=== PATIENT | male | born 1945 | race Caucasian/White ===

== ENCOUNTER 2019-03-14 15:13 | Emergency (ER) | payer MEDICARE ==
[2019-03-14 15:49] LABS: #Basophils 0.1 thou/uL (0.0-0.2); #Eosinphils 0.5 thou/uL (0.0-0.7); #Lymphocytes 2.4 thou/uL (1.20-3.40); #Neutrophils 6.9 thou/uL (1.40-6.50); %Basophils 1.1 % (0.0-1.0); %Eosinophils 4.5 % (0.0-10.0); %Lymphocytes 21.8 % (21.0-51.0); %Neutrophils 63.6 % (42.0-75.0); Anisocytosis SLIGHT = 6-15 cells (100X) (0-5/hpf); Elliptocytes SLIGHT = 2-5 cells (100X) (0-1/hpf); Hemoglobin 10.3 g/dL (14.0-18.0); Hypochromia SLIGHT = 6-15 cells (100X) (0-5/hpf); MDiff Complete? YES; Mean Corpuscular HGB CONC 30.3 g/dL (32.0-36.0); Mean Corpuscular Volume 76.1 fL (78.0-98.0); Mean Platelet Volume 8.4 fL (7.4-10.4); Microcytosis SLIGHT = 6-15 cells (100X) (0-5/hpf); Platelet Count 350 thou/uL (130-400); Poikilocytosis SLIGHT = 6-15 cells (100X) (0-5/hpf); RBC Distribution Width 18.9 % (11.5-14.5); Red Blood Cell (RBC) Count 4.48 mill/uL (4.70-6.10); Rouleaux Formation SLIGHT = 1-5 cells (100X) (None Seen); Schistocytes SLIGHT = 2-5 cells (100X) (0-1/hpf); Tear Drops SLIGHT = 2-5 cells (100X) (0-1/hpf); White Blood Cell (WBC) Count 10.8 thou/uL (4.8-10.8)
[2019-03-14 15:50] LABS: ALT (SGPT) 12 U/L (8-55); AST (SGOT) 13 U/L (5-34); Alkaline Phosphatase 111 U/L (40-150); Anion Gap 16 mmol/L (10-20); BUN (Urea Nitrogen) 19 mg/dL (8.4-25.7); Bilirubin, Total 0.2 mg/dL (0.2-1.2); CK (CPK) 48 U/L (30-200); Calc. Creatinine Clearance 0 mL/min (70-130); Calcium 9.5 mg/dL (7.8-10.44); Carbon Dioxide 21 mmol/L (23-31); Chloride 106 mmol/L (98-107); Estimated GFR-MDRD Greater than 90; Globulin 2.9 g/dL (2.4-3.5); Glucose 184 mg/dL (83-110); INR-International Normal Ratio 1.1; PTT 30.4 SEC (22.9-36.1); Potassium 4.4 mmol/L (3.5-5.1); Protein, Total 6.9 g/dL (5.8-8.1); Prothrombin Time 14.3 SEC (12.0-14.7); Sodium 139 mmol/L (136-145)
--- NOTE | 2019-03-14 15:54 | CT ---
CT head without contrast: Multiple axial tomograms obtained through the head without IV enhancement. INDICATIONS: Mental status change. Stroke alert. COMPARISON: None FINDINGS: Mild cortical volume loss. Ventricles have normal size and position. No evidence of intracranial mass, hemorrhage, edema, or infarct. Visualized sinuses and mastoids appear clear. Bony calvarium appears unremarkable. IMPRESSION: No acute finding Findings relayed to emergency room physician at 3:45 PM
[2019-03-14] MEDS ORDERED: Aspirin Chewable 81 MG TAB ONE (16:34)
[2019-03-14 16:46] LABS: Clarity Clear (Clear); Leukocyte Negative (Negative); Nitrite Negative (Negative); Protein, Urine (Dipstick) 100 mg/dL (Neg-Trace); Specific Gravity, Urine 1.015 (1.005-1.030); pH, Urine 5.5 (5.0-9.0)
[2019-03-14 16:47] LABS: Bacteria/HPF None Seen HPF (None Seen); Bilirubin Negative (Negative); Blood, Urine Negative (Negative); Glucose, Urine (Dipstick) Negative (Negative); RBC/HPF 0-3 HPF (0-3); Squamous Epithelial 0-3 HPF (0-3); Urobilinogen 0.2 mg/dL (0.2-1.0); WBC/HPF 0-3 HPF (0-3)
--- NOTE | 2019-03-14 23:09 | RAD ---
PORTABLE CHEST: 03/14/19 An AP portable film at 1556 is compared with a 12/17/17 study. The heart is normal in size for an AP projection. There is no vascular congestion, edema, or pleural effusion. The lungs are clear. Calcific changes are seen in the aortic arch. IMPRESSION: No acute thoracic finding. POS: HOME
== END 2019-03-14 16:58 | disposition short-term general hospital (02) ==
LOC: BURERS 15:13
DX: I67.82 Cerebral ischemia (principal); F17.210 Nicotine dependence, cigarettes, uncomplicated; E11.9 Type 2 diabetes mellitus without complications
CPT/HCPCS: 36416; 70450; 71045; 80053; 81003; 81015; 82550; 84484; 85025; 85610; 85730; 93005; 94760; 36415-59

== ENCOUNTER 2022-08-03 15:15 | Inpatient (IN) | payer MEDICARE ==
[2022-08-03 16:54] VITALS: BMI 11.0
[2022-08-03] MEDS ORDERED: FLU VACC QS2022-23(65YR UP)/PF 240 MCG/0.7 ML SYRINGE IM ONE (18:00)
[2022-08-03] MEDS: metFORMIN 500 MG TAB PO SCH (18:37)
[2022-08-03 18:43] LABS: SARS-CoV-2 NAA Rapid Test Not Detected (NotDetected)
[2022-08-03] MEDS: Amoxicillin/Potassium Clav 500 MG TAB PO SCH (21:22)
[2022-08-03] MEDS: Senokot S 8.6-50 MG TAB PO SCH (21:22)
[2022-08-03] MEDS: Apixaban 5 MG TAB PO SCH (21:22)
[2022-08-03] MEDS: Atorvastatin Calcium 40 MG TAB PO SCH (21:22)
[2022-08-04] MEDS ORDERED: Ondansetron ODT 4 MG TAB PO PRN (08:00)
[2022-08-04] MEDS: metFORMIN 500 MG TAB PO SCH ×2 (09:54→17:30)
[2022-08-04] MEDS: Senokot S 8.6-50 MG TAB PO SCH ×2 (09:54→20:20)
[2022-08-04] MEDS: Ezetimibe 10 MG TAB PO SCH (09:54)
[2022-08-04] MEDS: Amoxicillin/Potassium Clav 500 MG TAB PO SCH ×2 (09:55→20:20)
[2022-08-04] MEDS: Empagliflozin 10 MG TAB PO SCH (09:55)
[2022-08-04] MEDS: Apixaban 5 MG TAB PO SCH ×2 (09:55→20:21)
[2022-08-04] MEDS: NIFEdipine XL 30 MG TAB PO SCH (09:55)
[2022-08-04] MEDS: Aspirin 81 mg Enteric Coated Tablet PO SCH (09:55)
[2022-08-04] MEDS: Saccharomyces boulardii 250 MG CAP PO SCH (09:55)
[2022-08-04] MEDS: traMADol HCl 50 MG TAB PO PRN (16:00)
[2022-08-04] MEDS: Atorvastatin Calcium 40 MG TAB PO SCH (20:21)
[2022-08-05] MEDS: Bisacodyl 5 MG TAB PO PRN (09:21)
[2022-08-05] MEDS: metFORMIN 500 MG TAB PO SCH ×2 (09:21→17:32)
[2022-08-05] MEDS: Saccharomyces boulardii 250 MG CAP PO SCH (09:22)
[2022-08-05] MEDS: Apixaban 5 MG TAB PO SCH ×2 (09:22→20:07)
[2022-08-05] MEDS: NIFEdipine XL 30 MG TAB PO SCH (09:22)
[2022-08-05] MEDS: Amoxicillin/Potassium Clav 500 MG TAB PO SCH ×2 (09:22→20:07)
[2022-08-05] MEDS: Ezetimibe 10 MG TAB PO SCH (09:22)
[2022-08-05] MEDS: Empagliflozin 10 MG TAB PO SCH (09:23)
[2022-08-05] MEDS: Aspirin 81 mg Enteric Coated Tablet PO SCH (09:23)
[2022-08-05] MEDS: Senokot S 8.6-50 MG TAB PO SCH ×2 (09:23→20:07)
[2022-08-05] MEDS: traMADol HCl 50 MG TAB PO PRN (19:18)
[2022-08-05] MEDS: Atorvastatin Calcium 40 MG TAB PO SCH (20:07)
[2022-08-06] MEDS: traMADol HCl 50 MG TAB PO PRN ×2 (11:05→21:25)
[2022-08-06] MEDS: metFORMIN 500 MG TAB PO SCH ×2 (11:08→21:06)
[2022-08-06] MEDS: Ezetimibe 10 MG TAB PO SCH (11:08)
[2022-08-06] MEDS: Empagliflozin 10 MG TAB PO SCH (11:08)
[2022-08-06] MEDS: NIFEdipine XL 30 MG TAB PO SCH (11:09)
[2022-08-06] MEDS: Apixaban 5 MG TAB PO SCH ×2 (11:09→21:26)
[2022-08-06] MEDS: Amoxicillin/Potassium Clav 500 MG TAB PO SCH ×2 (11:09→21:26)
[2022-08-06] MEDS: Aspirin 81 mg Enteric Coated Tablet PO SCH (11:10)
[2022-08-06] MEDS: Saccharomyces boulardii 250 MG CAP PO SCH (11:10)
[2022-08-06] MEDS: Senokot S 8.6-50 MG TAB PO SCH ×2 (11:11→21:27)
[2022-08-06] MEDS: Atorvastatin Calcium 40 MG TAB PO SCH (21:26)
[2022-08-07] MEDS: NIFEdipine XL 30 MG TAB PO SCH (08:58)
[2022-08-07] MEDS: Saccharomyces boulardii 250 MG CAP PO SCH (08:58)
[2022-08-07] MEDS: Amoxicillin/Potassium Clav 500 MG TAB PO SCH ×2 (08:58→20:10)
[2022-08-07] MEDS: Senokot S 8.6-50 MG TAB PO SCH ×2 (08:59→20:09)
[2022-08-07] MEDS: Aspirin 81 mg Enteric Coated Tablet PO SCH (08:59)
[2022-08-07] MEDS: Empagliflozin 10 MG TAB PO SCH (08:59)
[2022-08-07] MEDS: Ezetimibe 10 MG TAB PO SCH (08:59)
[2022-08-07] MEDS: metFORMIN 500 MG TAB PO SCH ×2 (08:59→18:04)
[2022-08-07] MEDS: Apixaban 5 MG TAB PO SCH ×2 (08:59→20:10)
[2022-08-07] MEDS: traMADol HCl 50 MG TAB PO PRN (19:16)
[2022-08-07] MEDS: Atorvastatin Calcium 40 MG TAB PO SCH (20:10)
[2022-08-08] MEDS: Amoxicillin/Potassium Clav 500 MG TAB PO SCH ×2 (09:24→21:09)
[2022-08-08] MEDS: Ezetimibe 10 MG TAB PO SCH (09:24)
[2022-08-08] MEDS: Empagliflozin 10 MG TAB PO SCH (09:24)
[2022-08-08] MEDS: Apixaban 5 MG TAB PO SCH ×2 (09:24→21:09)
[2022-08-08] MEDS: metFORMIN 500 MG TAB PO SCH ×2 (09:25→18:13)
[2022-08-08] MEDS: Saccharomyces boulardii 250 MG CAP PO SCH (09:25)
[2022-08-08] MEDS: NIFEdipine XL 30 MG TAB PO SCH (09:25)
[2022-08-08] MEDS: Aspirin 81 mg Enteric Coated Tablet PO SCH (09:25)
[2022-08-08] MEDS: Senokot S 8.6-50 MG TAB PO SCH ×2 (09:25→21:09)
[2022-08-08] MEDS: traMADol HCl 50 MG TAB PO PRN (14:08)
[2022-08-08] MEDS: Atorvastatin Calcium 40 MG TAB PO SCH (21:09)
[2022-08-09] MEDS: metFORMIN 500 MG TAB PO SCH ×2 (09:30→17:47)
[2022-08-09] MEDS: Ezetimibe 10 MG TAB PO SCH (09:30)
[2022-08-09] MEDS: NIFEdipine XL 30 MG TAB PO SCH (09:30)
[2022-08-09] MEDS: Senokot S 8.6-50 MG TAB PO SCH ×2 (09:30→20:22)
[2022-08-09] MEDS: Empagliflozin 10 MG TAB PO SCH (09:30)
[2022-08-09] MEDS: Saccharomyces boulardii 250 MG CAP PO SCH (09:30)
[2022-08-09] MEDS: Aspirin 81 mg Enteric Coated Tablet PO SCH (09:31)
[2022-08-09] MEDS: Apixaban 5 MG TAB PO SCH ×2 (09:31→20:22)
[2022-08-09] MEDS: Atorvastatin Calcium 40 MG TAB PO SCH (20:22)
[2022-08-10 06:11] LABS: Anion Gap 16 mmol/L (10-20); BUN (Urea Nitrogen) 39 mg/dL (8.4-25.7); Calc. Creatinine Clearance 21 mL/min (70-130); Calcium 9.5 mg/dL (7.8-10.44); Carbon Dioxide 21 mmol/L (23-31); Chloride 104 mmol/L (98-107); Estimated GFR 55; Glucose 103 mg/dL (83-110); Potassium 5.6 mmol/L (3.5-5.1); Sodium 135 mmol/L (136-145)
[2022-08-10] MEDS: Senokot S 8.6-50 MG TAB PO SCH ×2 (08:29→20:45)
[2022-08-10] MEDS: NIFEdipine XL 30 MG TAB PO SCH (08:29)
[2022-08-10] MEDS: metFORMIN 500 MG TAB PO SCH ×2 (08:29→17:15)
[2022-08-10] MEDS: Ezetimibe 10 MG TAB PO SCH (08:29)
[2022-08-10] MEDS: Apixaban 5 MG TAB PO SCH ×2 (08:29→20:45)
[2022-08-10] MEDS: Saccharomyces boulardii 250 MG CAP PO SCH (08:29)
[2022-08-10] MEDS: Empagliflozin 10 MG TAB PO SCH (08:30)
[2022-08-10] MEDS: Aspirin 81 mg Enteric Coated Tablet PO SCH (08:30)
[2022-08-10] MEDS: traMADol HCl 50 MG TAB PO PRN (09:25)
[2022-08-10] MEDS: Atorvastatin Calcium 40 MG TAB PO SCH (20:45)
[2022-08-11 07:18] LABS: Hemoglobin 10.5 g/dL (14.0-18.0); Platelet Count 450 thou/uL (130-400)
[2022-08-11] MEDS: Empagliflozin 10 MG TAB PO SCH (09:24)
[2022-08-11] MEDS: Senokot S 8.6-50 MG TAB PO SCH ×2 (09:24→20:21)
[2022-08-11] MEDS: NIFEdipine XL 30 MG TAB PO SCH (09:24)
[2022-08-11] MEDS: metFORMIN 500 MG TAB PO SCH ×2 (09:24→17:06)
[2022-08-11] MEDS: Saccharomyces boulardii 250 MG CAP PO SCH (09:24)
[2022-08-11] MEDS: Ezetimibe 10 MG TAB PO SCH (09:25)
[2022-08-11] MEDS: Apixaban 5 MG TAB PO SCH ×2 (09:25→20:21)
[2022-08-11] MEDS: Aspirin 81 mg Enteric Coated Tablet PO SCH (09:25)
[2022-08-11] MEDS: Atorvastatin Calcium 40 MG TAB PO SCH (20:21)
[2022-08-12] MEDS: Aspirin 81 mg Enteric Coated Tablet PO SCH (08:40)
[2022-08-12] MEDS: metFORMIN 500 MG TAB PO SCH ×2 (08:40→18:01)
[2022-08-12] MEDS: Apixaban 5 MG TAB PO SCH ×2 (08:40→20:21)
[2022-08-12] MEDS: Empagliflozin 10 MG TAB PO SCH (08:41)
[2022-08-12] MEDS: NIFEdipine XL 30 MG TAB PO SCH (08:41)
[2022-08-12] MEDS: Ezetimibe 10 MG TAB PO SCH (08:41)
[2022-08-12] MEDS: Senokot S 8.6-50 MG TAB PO SCH ×2 (08:41→20:21)
[2022-08-12] MEDS: Saccharomyces boulardii 250 MG CAP PO SCH (08:41)
[2022-08-12] MEDS: traMADol HCl 50 MG TAB PO PRN (11:18)
[2022-08-12] MEDS: Atorvastatin Calcium 40 MG TAB PO SCH (20:21)
[2022-08-13] MEDS: metFORMIN 500 MG TAB PO SCH ×2 (07:56→18:44)
[2022-08-13] MEDS: Apixaban 5 MG TAB PO SCH ×2 (07:57→20:11)
[2022-08-13] MEDS: Saccharomyces boulardii 250 MG CAP PO SCH (07:57)
[2022-08-13] MEDS: Aspirin 81 mg Enteric Coated Tablet PO SCH (07:57)
[2022-08-13] MEDS: Senokot S 8.6-50 MG TAB PO SCH ×2 (07:57→20:11)
[2022-08-13] MEDS: Empagliflozin 10 MG TAB PO SCH (07:57)
[2022-08-13] MEDS: Ezetimibe 10 MG TAB PO SCH (07:57)
[2022-08-13] MEDS: NIFEdipine XL 30 MG TAB PO SCH (09:09)
[2022-08-13] MEDS: traMADol HCl 50 MG TAB PO PRN (09:09)
[2022-08-13] MEDS: tiZANidine HCl 4 MG TAB PO SCH ×2 (09:14→20:11)
[2022-08-13] MEDS: Atorvastatin Calcium 40 MG TAB PO SCH (20:11)
[2022-08-14] MEDS: Aspirin 81 mg Enteric Coated Tablet PO SCH (08:37)
[2022-08-14] MEDS: Empagliflozin 10 MG TAB PO SCH (08:38)
[2022-08-14] MEDS: NIFEdipine XL 30 MG TAB PO SCH (08:38)
[2022-08-14] MEDS: Ezetimibe 10 MG TAB PO SCH (08:39)
[2022-08-14] MEDS: Apixaban 5 MG TAB PO SCH ×2 (08:39→20:17)
[2022-08-14] MEDS: metFORMIN 500 MG TAB PO SCH ×2 (08:39→17:06)
[2022-08-14] MEDS: Senokot S 8.6-50 MG TAB PO SCH ×2 (08:39→20:17)
[2022-08-14] MEDS: Saccharomyces boulardii 250 MG CAP PO SCH (08:40)
[2022-08-14] MEDS: tiZANidine HCl 4 MG TAB PO SCH ×2 (08:40→20:17)
[2022-08-14] MEDS: Atorvastatin Calcium 40 MG TAB PO SCH (20:17)
[2022-08-15] MEDS: traMADol HCl 50 MG TAB PO PRN (09:45)
[2022-08-15] MEDS: Aspirin 81 mg Enteric Coated Tablet PO SCH (09:48)
[2022-08-15] MEDS: Senokot S 8.6-50 MG TAB PO SCH ×2 (09:48→20:14)
[2022-08-15] MEDS: Ezetimibe 10 MG TAB PO SCH (09:48)
[2022-08-15] MEDS: NIFEdipine XL 30 MG TAB PO SCH (09:49)
[2022-08-15] MEDS: Saccharomyces boulardii 250 MG CAP PO SCH (09:50)
[2022-08-15] MEDS: Apixaban 5 MG TAB PO SCH ×2 (09:50→20:14)
[2022-08-15] MEDS: metFORMIN 500 MG TAB PO SCH ×2 (09:50→16:38)
[2022-08-15] MEDS: tiZANidine HCl 4 MG TAB PO SCH ×2 (09:50→20:14)
[2022-08-15] MEDS: Empagliflozin 10 MG TAB PO SCH (09:51)
[2022-08-15] MEDS: Atorvastatin Calcium 40 MG TAB PO SCH (20:14)
[2022-08-16] MEDS: Empagliflozin 10 MG TAB PO SCH (08:20)
[2022-08-16] MEDS: Ezetimibe 10 MG TAB PO SCH (08:20)
[2022-08-16] MEDS: metFORMIN 500 MG TAB PO SCH ×2 (08:20→17:02)
[2022-08-16] MEDS: NIFEdipine XL 30 MG TAB PO SCH (08:21)
[2022-08-16] MEDS: Senokot S 8.6-50 MG TAB PO SCH ×2 (08:22→20:59)
[2022-08-16] MEDS: Saccharomyces boulardii 250 MG CAP PO SCH (08:22)
[2022-08-16] MEDS: Apixaban 5 MG TAB PO SCH ×2 (08:22→20:58)
[2022-08-16] MEDS: Aspirin 81 mg Enteric Coated Tablet PO SCH (08:23)
[2022-08-16] MEDS: tiZANidine HCl 4 MG TAB PO SCH ×2 (08:23→20:58)
[2022-08-16] MEDS: Atorvastatin Calcium 40 MG TAB PO SCH (20:58)
[2022-08-17] MEDS: Bisacodyl 5 MG TAB PO PRN (09:13)
[2022-08-17] MEDS: Ezetimibe 10 MG TAB PO SCH (09:13)
[2022-08-17] MEDS: Senokot S 8.6-50 MG TAB PO SCH ×2 (09:13→21:56)
[2022-08-17] MEDS: NIFEdipine XL 30 MG TAB PO SCH (09:14)
[2022-08-17] MEDS: Saccharomyces boulardii 250 MG CAP PO SCH (09:14)
[2022-08-17] MEDS: Aspirin 81 mg Enteric Coated Tablet PO SCH (09:14)
[2022-08-17] MEDS: tiZANidine HCl 4 MG TAB PO SCH ×2 (09:15→21:56)
[2022-08-17] MEDS: Apixaban 5 MG TAB PO SCH ×2 (09:15→21:56)
[2022-08-17] MEDS: Empagliflozin 10 MG TAB PO SCH (09:15)
[2022-08-17] MEDS: metFORMIN 500 MG TAB PO SCH ×2 (09:16→17:00)
[2022-08-17] MEDS: traMADol HCl 50 MG TAB PO PRN (09:21)
[2022-08-17] MEDS: Atorvastatin Calcium 40 MG TAB PO SCH (21:56)
[2022-08-18] MEDS: Bisacodyl 5 MG TAB PO PRN (09:50)
[2022-08-18] MEDS: NIFEdipine XL 30 MG TAB PO SCH (09:50)
[2022-08-18] MEDS: Saccharomyces boulardii 250 MG CAP PO SCH (09:51)
[2022-08-18] MEDS: tiZANidine HCl 4 MG TAB PO SCH ×2 (09:51→20:49)
[2022-08-18] MEDS: metFORMIN 500 MG TAB PO SCH ×2 (09:51→17:12)
[2022-08-18] MEDS: Senokot S 8.6-50 MG TAB PO SCH ×2 (09:52→20:49)
[2022-08-18] MEDS: Aspirin 81 mg Enteric Coated Tablet PO SCH (09:52)
[2022-08-18] MEDS: Apixaban 5 MG TAB PO SCH ×2 (09:52→20:50)
[2022-08-18] MEDS: Ezetimibe 10 MG TAB PO SCH (09:52)
[2022-08-18] MEDS: Empagliflozin 10 MG TAB PO SCH (09:52)
[2022-08-18] MEDS: Atorvastatin Calcium 40 MG TAB PO SCH (20:49)
[2022-08-19] MEDS: NIFEdipine XL 30 MG TAB PO SCH (09:08)
[2022-08-19] MEDS: Senokot S 8.6-50 MG TAB PO SCH ×2 (09:09→20:00)
[2022-08-19] MEDS: Ezetimibe 10 MG TAB PO SCH (09:09)
[2022-08-19] MEDS: Saccharomyces boulardii 250 MG CAP PO SCH (09:09)
[2022-08-19] MEDS: tiZANidine HCl 4 MG TAB PO SCH ×2 (09:09→20:00)
[2022-08-19] MEDS: metFORMIN 500 MG TAB PO SCH ×2 (09:09→17:24)
[2022-08-19] MEDS: Apixaban 5 MG TAB PO SCH ×2 (09:10→20:00)
[2022-08-19] MEDS: Empagliflozin 10 MG TAB PO SCH (09:10)
[2022-08-19] MEDS: Aspirin 81 mg Enteric Coated Tablet PO SCH (09:10)
[2022-08-19] MEDS: Atorvastatin Calcium 40 MG TAB PO SCH (20:00)
[2022-08-20] MEDS: traMADol HCl 50 MG TAB PO PRN (08:44)
[2022-08-20] MEDS: Empagliflozin 10 MG TAB PO SCH (08:46)
[2022-08-20] MEDS: metFORMIN 500 MG TAB PO SCH ×2 (08:47→16:52)
[2022-08-20] MEDS: Aspirin 81 mg Enteric Coated Tablet PO SCH (08:47)
[2022-08-20] MEDS: Saccharomyces boulardii 250 MG CAP PO SCH (08:47)
[2022-08-20] MEDS: NIFEdipine XL 30 MG TAB PO SCH (08:47)
[2022-08-20] MEDS: Apixaban 5 MG TAB PO SCH ×2 (08:47→20:04)
[2022-08-20] MEDS: Senokot S 8.6-50 MG TAB PO SCH ×2 (08:48→20:04)
[2022-08-20] MEDS: tiZANidine HCl 4 MG TAB PO SCH ×2 (08:48→20:04)
[2022-08-20] MEDS: Ezetimibe 10 MG TAB PO SCH (08:48)
[2022-08-20] MEDS: Atorvastatin Calcium 40 MG TAB PO SCH (20:04)
[2022-08-21 04:44] LABS: Hemoglobin 10.8 g/dL (14.0-18.0); Platelet Count 307 thou/uL (130-400)
[2022-08-21] MEDS: Aspirin 81 mg Enteric Coated Tablet PO SCH (08:54)
[2022-08-21] MEDS: Senokot S 8.6-50 MG TAB PO SCH ×2 (08:54→20:52)
[2022-08-21] MEDS: Saccharomyces boulardii 250 MG CAP PO SCH (08:54)
[2022-08-21] MEDS: Apixaban 5 MG TAB PO SCH ×2 (08:55→20:52)
[2022-08-21] MEDS: tiZANidine HCl 4 MG TAB PO SCH ×2 (08:55→20:52)
[2022-08-21] MEDS: metFORMIN 500 MG TAB PO SCH ×2 (08:55→18:09)
[2022-08-21] MEDS: NIFEdipine XL 30 MG TAB PO SCH (08:55)
[2022-08-21] MEDS: Ezetimibe 10 MG TAB PO SCH (08:55)
[2022-08-21] MEDS: Empagliflozin 10 MG TAB PO SCH (08:55)
[2022-08-21] MEDS: Atorvastatin Calcium 40 MG TAB PO SCH (20:52)
[2022-08-22] MEDS: traMADol HCl 50 MG TAB PO PRN (09:18)
[2022-08-22] MEDS: Ezetimibe 10 MG TAB PO SCH (09:20)
[2022-08-22] MEDS: Aspirin 81 mg Enteric Coated Tablet PO SCH (09:20)
[2022-08-22] MEDS: tiZANidine HCl 4 MG TAB PO SCH ×2 (09:20→20:21)
[2022-08-22] MEDS: Senokot S 8.6-50 MG TAB PO SCH ×2 (09:20→20:21)
[2022-08-22] MEDS: metFORMIN 500 MG TAB PO SCH ×2 (09:21→16:57)
[2022-08-22] MEDS: Apixaban 5 MG TAB PO SCH ×2 (09:21→20:21)
[2022-08-22] MEDS: Saccharomyces boulardii 250 MG CAP PO SCH (09:21)
[2022-08-22] MEDS: NIFEdipine XL 30 MG TAB PO SCH (09:21)
[2022-08-22] MEDS: Empagliflozin 10 MG TAB PO SCH (09:21)
[2022-08-22] MEDS: Atorvastatin Calcium 40 MG TAB PO SCH (20:21)
[2022-08-23] MEDS: NIFEdipine XL 30 MG TAB PO SCH (08:41)
[2022-08-23] MEDS: Senokot S 8.6-50 MG TAB PO SCH ×2 (08:41→20:25)
[2022-08-23] MEDS: tiZANidine HCl 4 MG TAB PO SCH ×2 (08:42→20:24)
[2022-08-23] MEDS: Ezetimibe 10 MG TAB PO SCH (08:42)
[2022-08-23] MEDS: Aspirin 81 mg Enteric Coated Tablet PO SCH (08:42)
[2022-08-23] MEDS: Apixaban 5 MG TAB PO SCH ×2 (08:42→20:25)
[2022-08-23] MEDS: metFORMIN 500 MG TAB PO SCH ×2 (08:42→16:51)
[2022-08-23] MEDS: Saccharomyces boulardii 250 MG CAP PO SCH (08:42)
[2022-08-23] MEDS: Empagliflozin 10 MG TAB PO SCH (08:42)
[2022-08-23] MEDS: Atorvastatin Calcium 40 MG TAB PO SCH (20:25)
[2022-08-24] MEDS: Apixaban 5 MG TAB PO SCH ×2 (08:30→20:38)
[2022-08-24] MEDS: tiZANidine HCl 4 MG TAB PO SCH ×2 (08:30→20:38)
[2022-08-24] MEDS: Empagliflozin 10 MG TAB PO SCH (08:30)
[2022-08-24] MEDS: NIFEdipine XL 30 MG TAB PO SCH (08:30)
[2022-08-24] MEDS: Saccharomyces boulardii 250 MG CAP PO SCH (08:30)
[2022-08-24] MEDS: Ezetimibe 10 MG TAB PO SCH (08:30)
[2022-08-24] MEDS: Senokot S 8.6-50 MG TAB PO SCH ×2 (08:30→20:38)
[2022-08-24] MEDS: Aspirin 81 mg Enteric Coated Tablet PO SCH (08:30)
[2022-08-24] MEDS: metFORMIN 500 MG TAB PO SCH ×2 (08:31→17:36)
[2022-08-24] MEDS: traMADol HCl 50 MG TAB PO PRN (13:46)
[2022-08-24] MEDS: Atorvastatin Calcium 40 MG TAB PO SCH (20:38)
[2022-08-25 06:19] VITALS: BP 178/69; TEMP 97.8
[2022-08-25] MEDS: Ezetimibe 10 MG TAB PO SCH (08:17)
[2022-08-25] MEDS: Aspirin 81 mg Enteric Coated Tablet PO SCH (08:17)
[2022-08-25] MEDS: metFORMIN 500 MG TAB PO SCH (08:17)
[2022-08-25] MEDS: Senokot S 8.6-50 MG TAB PO SCH (08:18)
[2022-08-25] MEDS: Apixaban 5 MG TAB PO SCH (08:18)
[2022-08-25] MEDS: NIFEdipine XL 30 MG TAB PO SCH (08:18)
[2022-08-25] MEDS: Empagliflozin 10 MG TAB PO SCH (08:19)
[2022-08-25] MEDS: tiZANidine HCl 4 MG TAB PO SCH (08:19)
[2022-08-25] MEDS: Saccharomyces boulardii 250 MG CAP PO SCH (08:19)
[2022-08-25] MEDS: traMADol HCl 50 MG TAB PO PRN (12:05)
== END 2022-08-25 14:00 | disposition home health service (06) | DRG 561 ==
LOC: BURMED 15:15
PROVIDERS: ADMIT Family Medicine; ATTEND Family Medicine
DX: Z47.81 Encounter for orthopedic aftercare following surgical amputation (principal); Z20.822 Contact with and (suspected) exposure to COVID-19; I48.91 Unspecified atrial fibrillation; I10 Essential (primary) hypertension; Z79.01 Long term (current) use of anticoagulants; Z86.73 Personal history of transient ischemic attack (TIA), and cerebral infarction without residual deficits; R53.1 Weakness; Z79.84 Long term (current) use of oral hypoglycemic drugs; E11.9 Type 2 diabetes mellitus without complications; E78.5 Hyperlipidemia, unspecified; Z79.899 Other long term (current) drug therapy
CPT/HCPCS: 36415; 36416; 80048; 82565; 85014; 85018; 85049; 87811; 97602; Q0162; U0002

== ENCOUNTER 2023-10-27 15:09 | Emergency (ER) | payer MEDICARE | END 2023-10-27 15:51 | disposition home or self-care (01) | LOC: BURERS 15:09 | DX: R09.81 Nasal congestion (principal); I10 Essential (primary) hypertension; Z87.891 Personal history of nicotine dependence | CPT/HCPCS: 99283 ==

== ENCOUNTER 2023-11-25 17:10 | Inpatient (IN) | payer MEDICARE ==
[2023-11-25 22:02] VITALS: BMI 22.8
[2023-11-26] MEDS ORDERED: Dextrose 50% Abboject 50 ML SYRINGE SLOW IVP PRN (07:13)
[2023-11-26] MEDS ORDERED: Dextrose 5% in Water 1,000 ML IV PRN (07:13)
[2023-11-26] MEDS ORDERED: Glucagon 1 MG/ML KIT IM PRN (07:13)
[2023-11-26] MEDS: metFORMIN 500 MG TAB PO SCH (08:39)
[2023-11-26] MEDS: Ferrous Sulfate 325 MG TAB PO SCH (08:40)
[2023-11-26] MEDS ORDERED: METOPROLOL SUCCINATE 50 MG PO SCH (09:00)
[2023-11-26] MEDS: Sacubitril 24MG/Valsartan 26 MG TAB PO SCH (09:49)
[2023-11-26] MEDS: Ezetimibe 10 MG TAB PO SCH (09:49)
[2023-11-26] MEDS: Apixaban 2.5 MG TAB PO SCH (09:49)
[2023-11-26] MEDS: Furosemide 40 MG TAB PO SCH (09:49)
[2023-11-26] MEDS: FLU VACC QS2023(65UP)/MF59C/PF 60 MCG/0.5 ML SYRINGE IM ONE (09:50)
[2023-11-26] MEDS: Loperamide HCl 2 MG CAP PO PRN (17:39)
[2023-11-26] MEDS: Ondansetron ODT 4 MG TAB PO PRN (17:39)
[2023-11-26] MEDS: hydrOXYzine 25 MG TAB PO SCH (21:59)
[2023-11-26] MEDS: Acetaminophen 325 MG TAB PO PRN (22:18)
[2023-11-27] MEDS: Saccharomyces boulardii 250 MG CAP PO SCH (10:46)
[2023-12-02 07:46] LABS: Hemoglobin 13.2 g/dL (14.0-18.0); Platelet Count 273 10x3/uL (130-400)
[2023-12-03] MEDS: HumaLOG 300 UNITS/3 ML VIAL SC PRN (09:30)
[2023-12-10 05:21] LABS: #Basophils 0.1 thou/uL (0.0-0.2); #Eosinphils 0.2 thou/uL (0.0-0.7); #Lymphocytes 1.9 thou/uL (1.20-3.40); #Neutrophils 9.3 thou/uL (1.40-6.50); %Basophils 0.8 % (0.0-1.0); %Eosinophils 1.6 % (0.0-10.0); %Lymphocytes 15.3 % (21.0-51.0); %Neutrophils 74.3 % (42.0-75.0); Hematocrit 37.5 % (42.0-52.0); Hemoglobin 12.5 g/dL (14.0-18.0); Mean Corpuscular HGB CONC 33.4 g/dL (32.0-36.0); Mean Corpuscular Hemoglobin 29.8 pg (27.0-31.0); Mean Platelet Volume 8.9 fL (7.4-10.4); Platelet Count 273 10x3/uL (130-400); Red Blood Cell (RBC) Count 4.21 mill/uL (4.70-6.10); White Blood Cell (WBC) Count 12.5 10x3/uL (4.8-10.8)
[2023-12-10 05:47] LABS: Anion Gap 18 mmol/L (10-20); BUN (Urea Nitrogen) 93 mg/dL (8.4-25.7); Calc. Creatinine Clearance 23 mL/min (70-130); Calcium 9.6 mg/dL (7.8-10.44); Carbon Dioxide 22 mmol/L (23-31); Chloride 100 mmol/L (98-107); Estimated GFR 26; Glucose 86 mg/dL (83-110); Sodium 133 mmol/L (136-145)
[2023-12-10 05:50] LABS: Critical Call Chemistry NUR.FCL @ 0545; Potassium 6.6 mmol/L (3.5-5.1)
[2023-12-10] MEDS: Sodium Polystyrene Sulfonate 15 GM (60 mL) BOT PO SCH (08:59)
[2023-12-10] MEDS: Sodium Chloride 0.9% 500 ML IV SCH (08:59)
[2023-12-10] MEDS: Fluticasone Propionate Nasal Spray 16 gm Bottle NASAL SCH (11:19)
[2023-12-10] MEDS: Furosemide 20 MG TAB PO SCH (11:19)
[2023-12-11 05:13] LABS: #Basophils 0.1 thou/uL (0.0-0.2); #Eosinphils 0.3 thou/uL (0.0-0.7); #Lymphocytes 2.1 thou/uL (1.20-3.40); #Monocytes 0.8 thou/uL (0.11-0.59); #Neutrophils 7.1 thou/uL (1.40-6.50); %Eosinophils 2.8 % (0.0-10.0); %Lymphocytes 20.1 % (21.0-51.0); %Monocytes 7.9 % (0.0-10.0); %Neutrophils 68.2 % (42.0-75.0); Hematocrit 37.9 % (42.0-52.0); Hemoglobin 12.8 g/dL (14.0-18.0); Mean Corpuscular HGB CONC 33.7 g/dL (32.0-36.0); Mean Corpuscular Hemoglobin 30.2 pg (27.0-31.0); Mean Corpuscular Volume 89.5 fl (78.0-98.0); Mean Platelet Volume 8.2 fL (7.4-10.4); Platelet Count 248 10x3/uL (130-400); RBC Distribution Width 14.2 % (11.5-14.5); Red Blood Cell (RBC) Count 4.23 mill/uL (4.70-6.10); White Blood Cell (WBC) Count 10.4 10x3/uL (4.8-10.8)
[2023-12-11 05:19] VITALS: BP 111/61; TEMP 98.1
[2023-12-11 05:33] LABS: Anion Gap 17 mmol/L (10-20); BUN (Urea Nitrogen) 94 mg/dL (8.4-25.7); Calc. Creatinine Clearance 26 mL/min (70-130); Calcium 9.3 mg/dL (7.8-10.44); Carbon Dioxide 17 mmol/L (23-31); Chloride 103 mmol/L (98-107); Estimated GFR 30; Glucose 104 mg/dL (83-110); Sodium 132 mmol/L (136-145)
== END 2023-12-11 15:00 | DRG 948 ==
LOC: BURMED 20:00
PROVIDERS: ADMIT Family Medicine; ATTEND Family Medicine
DX: R53.81 Other malaise (principal); I50.22 Chronic systolic (congestive) heart failure; N17.9 Acute kidney failure, unspecified; I13.0 Hypertensive heart and chronic kidney disease with heart failure and stage 1 through stage 4 chronic kidney disease, or unspecified chronic kidney disease; R53.1 Weakness; K44.9 Diaphragmatic hernia without obstruction or gangrene; I48.91 Unspecified atrial fibrillation; E11.51 Type 2 diabetes mellitus with diabetic peripheral angiopathy without gangrene; J44.9 Chronic obstructive pulmonary disease, unspecified; E11.22 Type 2 diabetes mellitus with diabetic chronic kidney disease; E86.0 Dehydration; E87.5 Hyperkalemia; N18.2 Chronic kidney disease, stage 2 (mild); K64.8 Other hemorrhoids; Z88.5 Allergy status to narcotic agent; Z79.84 Long term (current) use of oral hypoglycemic drugs; Z79.899 Other long term (current) drug therapy; Z98.890 Other specified postprocedural states; Z88.6 Allergy status to analgesic agent; Z88.8 Allergy status to other drugs, medicaments and biological substances; Z99.3 Dependence on wheelchair; Z89.612 Acquired absence of left leg above knee
CPT/HCPCS: 36415; 36416; 80048; 85014; 85018; 85025; 85049; J1815; J7030; Q0162

== ENCOUNTER 2024-05-12 17:30 | Emergency (ER) | payer MEDICARE | END 2024-05-12 19:42 | LOC: EEVIPCON 17:30 → BURERS 17:30 | DX: Z00.00 Encounter for general adult medical examination without abnormal findings (principal); I13.0 Hypertensive heart and chronic kidney disease with heart failure and stage 1 through stage 4 chronic kidney disease, or unspecified chronic kidney disease; E11.22 Type 2 diabetes mellitus with diabetic chronic kidney disease; N18.2 Chronic kidney disease, stage 2 (mild); I50.9 Heart failure, unspecified; I48.91 Unspecified atrial fibrillation; I73.9 Peripheral vascular disease, unspecified; Z86.73 Personal history of transient ischemic attack (TIA), and cerebral infarction without residual deficits; Z87.891 Personal history of nicotine dependence | CPT/HCPCS: 99284 ==